=== PATIENT | female | born 2000 | race African-American/Black ===

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

== ENCOUNTER 2019-02-14 10:28 | Emergency (ER) | payer MEDICAID ==
[2019-02-14 12:22] LABS: APPEARANCE,URINE CLEAR; BILIRUBIN,URINE NEGATIVE (NEGATIVE); COLOR,URINE YELLOW; GLUCOSE, URINE NEGATIVE (NEGATIVE); KETONES,URINE 20 mg/dL (NEGATIVE); LEUKOCYTE ESTERASE,URINE NEGATIVE (NEGATIVE); NITRITE,URINE NEGATIVE (NEGATIVE); PROTEIN,URINE NEGATIVE (NEGATIVE); URINE SPECIFIC GRAVITY 1.016; UROBILINOGEN,URINE NEGATIVE mg/dL (<2.0)
[2019-02-14 12:27] LABS: RBCS (WET MOUNT) 4+ RBCS SEEN; T.VAGINALIS (WET MOUNT) NO TRICHOMONAS SEEN; WBCS (WET MOUNT) 1+ WBCS SEEN; YEAST (WET MOUNT) NO YEAST SEEN
--- NOTE | 2019-02-14 12:31 | ER Document Report ---
HPI - HPI Patient complains to provider of: vaginal irritation Time Seen by Provider: 02/14/19 11:28 Onset: Other Onset/Duration: Persistent Pain Level: 1 Context: 18-year-old female presents emergency department with complaints of vaginal itching with yellow discharge. She reports couple weeks ago she went to the health department was treated for chlamydia and a bacterial infection. She r eports she took all the antibiotics. She reports that now she is having some pain with void it calle occasionally and urinary frequency. Denies fever vomiting diarrhea. Is currently on her menses. Associated Symptoms: None Exacerbated by: Other - voiding Relieved by: Denies Similar symptoms previously: Yes Recently seen / treated by doctor: Yes - REPRODUCTIVE LMP: 01/14/19 Reproductive: DENIES: : Past Medical History - General Information source: Patient Last Menstrual Period: Current - Social History Smoking Status: Never Smoker Chew tobacco use (# tins/day): No Frequency of alcohol use: None Drug Abuse: Marijuana Family History: Reviewed & Not Pertinent Patient has suicidal ideation: No Patient has homicidal ideation: No - Past Medical History Cardiac Medical History: Denies: Hx Coronary Artery Disease, Hx Heart Attack, Hx Hypertension Pulmonary Medical History: Reports: Hx Asthma Denies: Hx Bronchitis, Hx COPD, Hx Pneumonia Neurological Medical History: Denies: Hx Cerebrovascular Accident, Hx Seizures Renal/ Medical History: Reports: Other - Chlamydia. Denies: Hx Peritoneal Dialysis Musculoskeletal Medical History: Denies Hx Arthritis Surgical Hx: Negative - Immunizations Immunizations up to date: Yes Hx Diphtheria, Pertussis, Tetanus Vaccination: Yes Vertical Provider Document - CONSTITUTIONAL Agree With Documented VS: Yes Exam Limitations: No Limitations General Appearance: WD/WN, No Apparent Distress - INFECTION CONTROL TRAVEL OUTSIDE OF THE [place] IN LAST 30 DAYS: No - HEENT HEENT: Atraumatic, Normocephalic. negative: Conjuctival Injection - NECK Neck: Normal Inspection, Supple. negative: Lymphadenopathy-Left, Lymphadeno gonzalo-Right - RESPIRATORY Respiratory: Breath Sounds Normal, No Respiratory Distress - CARDIOVASCULAR Cardiovascular: Regular Rate - GI/ABDOMEN Gastrointestinal: Abdomen Soft, Abdomen Non-Tender - REPRODUCTIVE Female Genitalia: Normal Inspection Last Menstrual Period: Current - BACK Back: Normal Inspection - MUSCULOSKELETAL/EXTREMETIES Musculoskeletal/Extremeties: MAEW, FROM, Non-Tender - NEURO Level of Consciousness: Awake, Alert, Appropriate Motor/Sensory: No Motor Deficit - DERM Integumentary: Warm, Dry, No Rash Course - Re-evaluation Re-evalutation: 02/14/19 12:19 This 18-year-old female with recent history of bacterial vaginosis and chlamydia presents to the emergency department complaining of vaginal itching and yellow discharge. Also complains of pain with void and urinary frequency. She reports she did take all medications but is unsure of what they were. Discussed STD urine culture sent. Patient reports she would rather be treated then wait to 3 hours or come back for treatment. Patient was instructed I will wait for the UA and wet mount results before we treat her. She verbalized understanding to all instructions Dictation of this chart was performed using voice recognition software; therefore, there may be some unintended grammatical errors. 02/14/19 12:56 UA is unremarkable wet mount negative for trichomoniasis negative for BV. Patient will be treated prophylactically with Rocephin and Zithromax per her request for possible STD. She was instructed to follow-up with the health department for recheck within the next week. Urine Color YELLOW 02/14/19 11:56 Urine Appearance CLEAR 02/14/19 11:56 Urine pH 7.0 (5.0-9.0) 02/14/19 11:56 Ur Specific [place] 1.016 02/14/19 11:56 Urine Protein NEGATIVE mg/dL (NEGATIVE) 02/14/19 11:56 Urine Glucose (UA) NEGATIVE mg/dL (NEGATIVE) 02/14/19 11:56 Urine Ketones 20 mg/dL (NEGATIVE) H 02/14/19 11:56 Urine Blood NEGATIVE (NEGATIVE) 02/14/19 11:56 Urine Nitrite NEGATIVE (NEGATIVE) 02/14/19 11:56 Ur Leukocyte Esterase NEGATIVE (NEGATIVE) 02/14/19 11:56 Urine WBC (Auto) 0 /HPF 02/14/19 11:56 Urine RBC (Auto) 0 /HPF 02/14/19 11:56 02/14/19 20:04 STD cultures negative Dictation of this chart was performed using voice recognition software; therefore, there may be some unintended grammatical errors. - Vital Signs Vital signs: Temp Pulse Resp BP Pulse Ox 98.4 F 71 20 128/78 H 100 02/14/19 10:33 02/14/19 10:33 02/14/19 10:33 02/14/19 10:33 02/14/19 10:33 Procedures - Pelvic Exam Pelvic exam Time completed: 12:18 Cultures obtained: No - Urine cultures sent Wet prep obtained: Yes Herpes culture obtained: No POC sent to lab: No Foreign body removed: No Bimanual exam performed: Yes Witnessed by: Eugenia FRAZIER's Discharge - Discharge Clinical Impression: Dysuria, Vaginal irritation, Possible exposure to STD Condition: Stable Disposition: HOME, SELF-CARE Instructions: Azithromycin ([facility]), Chlamydia ([facility]), Gonorrhea ([facility]), [facility] [place], Rocephin ([facility]) Additional Instructions: *You have been evaluated for vaginal irritation,discharge, urinary frequency and pain with void *Your wet mount was negative for bacterial infection. Your urine was negative for a urinary tract infection *You have been treated with Rocephin and Zithromax for gonorrhea and chlamydia per your request. You may call the culture nurse at [phone] Tuesday through Tuesday 8-4 for your results. *Follow up with your STRATEGY CONSULTANT or the health department for recheck within one week *Avoid sexual intercourse until follow up *Return to ED for worsening condition, changes, needs Forms: Elevated Blood Pressure Referrals: DENIZ CABRALES MD [Primary Care Provider] - Follow up as needed
[2019-02-14] MEDS ORDERED: CEFTRIAXONE INJ 250 MG VIAL IM ONE (12:53)
[2019-02-14] MEDS ORDERED: LIDOCAINE 1% INJ-PF (10 MG/ML) 30 ML SDV INJ ONE (12:54)
[2019-02-14] MEDS ORDERED: AZITHROMYCIN 250 MG TABLET PO ONE (12:54)
[2019-02-14] MEDS ORDERED: CEFTRIAXONE INJ 500 MG VIAL ONE (13:03)
[2019-02-14] MEDS ORDERED: AZITHROMYCIN 250 MG TABLET ONE (13:04)
[2019-02-14] MEDS ORDERED: LIDOCAINE 1% INJ-PF (10 MG/ML) 30 ML SDV ONE (13:04)
[2019-02-14 13:42] VITALS: BP 114/78
[2019-02-14 13:48] LABS: CHLAM PCR NOT DETECTED (NOT DETECT)
== END 2019-02-14 13:41 | disposition home or self-care (01) ==
LOC: ER 10:28
DX: L29.2 Pruritus vulvae (principal); R30.0 Dysuria; Z20.2 Contact with and (suspected) exposure to infections with a predominantly sexual mode of transmission
CPT/HCPCS: 99283; 96374; 96375; 87210; 81025; 81001; 87491; 87591; Q0144; J3490; J0696

== ENCOUNTER 2019-08-24 21:18 | Emergency (ER) | payer MEDICAID ==
--- NOTE | 2019-08-24 21:34 | ER Document Report ---
ED Medical Screen (RME) - General Chief Complaint: Vaginal Discharge Stated Complaint: VAGINAL DISCHARGE/VAGINAL PAIN Primary Care Provider: DENIZ CABRALES MD [Primary Care Provider] - Follow up as needed Notes: Patient is a 19-year-old -[place] female with a history of chlamydia last year who was seen here and treated. States she told her partner at that time to get treated. She is unsure if he got treated or not. She decided to h ave intercourse with him again recently and feels that she has chlamydia again. She states "I know the symptoms". She states she has had some vaginal irritation, foul smelling discharge that is on colored. Denies history of PID. States also while she is here she like some medicine for allergies because she has difficulty breathing through her nose at night. I have treated and performed a rapid initial assessment of this patient. A comprehensive ED assessment and evaluation of the patient, analysis of test results and completion of medical decision making process will be conducted by additional ED providers. PHYSICAL EXAMINATION: GENERAL: Well-appearing, well-nourished and in no acute distress. A&Ox4. Answers questions appropriately. TRAVEL OUTSIDE OF THE [place] IN LAST 30 DAYS: No - Related Data Allergies/Adverse Reactions: No Known Allergies Allergy (Verified 02/14/19 10:36) Past Medical History - Past Medical History Cardiac Medical History: Denies: Hx Coronary Artery Disease, Hx Heart Attack, Hx Hypertension Pulmonary Medical History: Reports: Hx Asthma Denies: Hx Bronchitis, Hx COPD, Hx Pneumonia Neurological Medical History: Denies: Hx Cerebrovascular Accident, Hx Seizures Renal/ Medical History: Denies: Hx Peritoneal Dialysis Musculoskeltal Medical History: Denies Hx Arthritis - Immunizations Immunizations up to date: Yes Hx Diphtheria, Pertussis, Tetanus Vaccination: Yes Doctor's Discharge - Discharge Referrals: DENIZ CABRALES MD [Primary Care Provider] - Follow up as needed
[2019-08-24 21:37] VITALS: BP 134/75
[2019-08-24 22:17] LABS: APPEARANCE,URINE CLOUDY; BILIRUBIN,URINE NEGATIVE (NEGATIVE); COLOR,URINE YELLOW; GLUCOSE, URINE NEGATIVE (NEGATIVE); KETONES,URINE NEGATIVE (NEGATIVE); PROTEIN,URINE NEGATIVE (NEGATIVE); URINE SPECIFIC GRAVITY 1.025
[2019-08-24 23:44] LABS: CHLAM PCR NOT DETECTED (NOT DETECT)
== END 2019-08-24 23:07 | disposition left against medical advice (07) ==
LOC: ER 21:18
DX: Z53.21 Procedure and treatment not carried out due to patient leaving prior to being seen by health care provider (principal); N89.8 Other specified noninflammatory disorders of vagina; R10.2 Pelvic and perineal pain
CPT/HCPCS: 81001; 81025; 87491; 87591; 99283

== ENCOUNTER 2019-08-25 02:15 | Emergency (ER) | payer MEDICAID ==
[2019-08-25] MEDS ORDERED: PREDNISONE 20 MG TABLET PO ONE (03:40)
--- NOTE | 2019-08-25 03:59 | ER Document Report ---
Entered by JORGE L SALGADO SCRIBE 08/25/19 0242 Acting as scribe for:ESPERANZA RODRIGUEZ IV, MD ED General - General Chief Complaint: STD Exposure Stated Complaint: STD CHECK Time Seen by Provider: 08/25/19 02:40 Primary Care Provider: DENIZ CABRALES MD [Primary Care Provider] - Follow up as needed ANALILIA REGALADO MD [HONORARY] - 08/27/19 (Call 08/27/2019 to arrange a follow-up appointment to be seen within 10 days for a recheck of your lipase and liver function enzyme levels.) Mode of Arrival: Ambulatory Information source: Patient Notes: This 19 year old female patient with a history of chlamydia presents to the ED today with complaints of possible STD exposure. Patient reports vaginal itching and foul-smelling vaginal discharge, but denies vaginal pain. She states that she switched feminine products recently, from Summer's Radha to "Clement V" because the former product was making her itch. She notes that her liquid Clement V was out of stock at the store, so she switched to the bar soap version, and the itching worsened. She was seen here last night for similar symptoms, but eloped. She denies epigastric pain, nausea, vomiting, fever, or excessive ETOH use. TRAVEL OUTSIDE OF THE [place] IN LAST 30 DAYS: No - Related Data Allergies/Adverse Reactions: No Known Allergies Allergy (Verified 02/14/19 10:36) Past Medical History - General Information source: Patient, [facility] Records - Social History Smoking Status: Current Every Day Smoker Cigarette use (# per day): Yes Chew tobacco use (# tins/day): No Smoking Education Provided: No Drug Abuse: Marijuana Family History: Reviewed & Not Pertinent Patient has suicidal ideation: No Patient has homicidal ideation: No Pulmonary Medical History: Reports: Hx Asthma - Immunizations Immunizations up to date: Yes Hx Diphtheria, Pertussis, Tetanus Vaccination: Yes Review of Systems - Review of Systems Constitutional: See HPI. denies: Fever EENT: No symptoms reported Cardiovascular: No symptoms reported Respiratory: No symptoms reported Gastrointestinal: See HPI. denies: Abdominal pain, Nausea, Vomiting Genitourinary: No symptoms reported Female Genitourinary: See HPI, Vaginal discharge, Vaginal odor, Other - Vaginal itching. Denies vaginal pain Musculoskeletal: No symptoms reported Skin: No symptoms reported Hematologic/Lymphatic: No symptoms reported Neurological/Psychological: No symptoms reported -: Yes All other systems reviewed and negative Physical Exam - Vital signs Vitals: Temp Pulse Resp BP Pulse Ox 98.0 F 71 12 119/81 99 08/25/19 02:20 08/25/19 02:20 08/25/19 02:20 08/25/19 02:20 08/25/19 02:20 Interpretation: Normal - General General appearance: Alert, Other - Distracted with technology In distress: None - HEENT Head: Normocephalic, Atraumatic Eyes: Normal Pupils: PERRL - Respiratory Respiratory status: No respiratory distress Chest status: Nontender Breath sounds: Normal Chest palpation: Normal - Cardiovascular Rhythm: Regular Heart sounds: Normal auscultation Murmur: No Friction rub: No Gallop: None auscultated - Abdominal Inspection: Normal Distension: No distension Bowel sounds: Normal Tenderness: Nontender - Abdomen soft Organomegaly: No organomegaly - Genitourinary External exam: Normal, Other - No erythema. No rash. No blisters. No vaginal discharge appreciated. - Back Back: Normal, Nontender - Extremities General upper extremity: Normal inspection General lower extremity: Normal inspection - Neurological Neuro grossly intact: Yes Sensory: Normal - Psychological Associated symptoms: Normal affect, Normal mood - Skin Skin Temperature: Warm Skin Moisture: Dry Skin Color: Normal Course - Re-evaluation Re-evalutation: 08/25/19 03:43 Results from patient's earlier ED visit discussed with patient. Elevated lipase and elevated LFTs were also discussed with the patient. Patient denies epigastric or other abdominal pain, nausea, vomiting, fever, excessive alcohol use. All questions were answered prior to discharge. Emergency signs and symptoms, reasons to return to the emergency department discussed with patient. Patient was instructed to follow-up with the primary care provider provided to her for a recheck of her lipase and LFTs in 10 days. - Vital Signs Vital signs: Temp Pulse Resp BP Pulse Ox 98.0 F 71 12 119/81 99 08/25/19 02:20 08/25/19 02:20 08/25/19 02:20 08/25/19 02:20 08/25/19 02:20 Discharge - Discharge Clinical Impression: Contact dermatitis Qualifiers: Contact dermatitis type: unspecified Contact dermatitis trigger: other chemical product Qualified Code(s): L25.3 - Unspecified contact dermatitis due to other chemical products Condition: Good Disposition: HOME, SELF-CARE Additional Instructions: Return to the Emergency Department without delay if any worse. You have been diagnosed with a contact dermatitis related to 1 of the personal hygiene products you used. Discontinue use of this product. You have also been informed that your lipase and liver function test levels were elevated. Given that you have no other symptoms suggestive of liver or pancreas problems, no further evaluation of these findings was deemed medical necessity at this point. Be certain to follow-up with the primary care provider listed for a repeat check of your LFTs and lipase in 10 days. HOME CARE INSTRUCTIONS & INFORMATION: Thank you for choosing us for your medical needs. We hope you're satisfied with the care you received. After you leave, you must properly care for your problem and, at the same time, observe its progress. Any condition can change. Some illnesses can change rapidly over hours or days. If your condition worsens, return to the Emergency Department or see your physician promptly. ABOUT YOUR X-RAYS AND EKG'S: If you had an EKG or X-rays taken, they have been read by the Emergency Physician. The X-rays and EKG's will also be read by a Radiologist or Railroad Passenger Agent within 24 hours. If discrepancies are noted, you will be notified by telephone. Please be certain the ED has a correct telephone number & address where you can be reached. Also, realize that some fractures or abnormalities do not show up on initial X-rays. If your symptoms continue, see your physician. ABOUT YOUR LABORATORY TEST: If you had laboratory tests, the results have been reviewed by the Emergency Physician. Some test results (for example cultures) may not be available for several days. You will be contacted if any test result shows you need additional treatment. Please be certain the ED has a correct telephone number and address where you can be reached. ABOUT YOUR MEDICATIONS: You will receive instructions on how to take your medicine on the prescription label you receive. Additional information may be provided by the Pharmacy. If you have questions afterwards, call the ED for clarification or further instructions. Some prescribed medications may cause drowsiness. Do not perform tasks such as driving a car or operating machinery without consulting your Pharmacist. If you feel you need a refill of pain medication, your condition will need re-evaluation. Please do not call for a refill of any medication. ABOUT YOUR SIGNATURE: Signature of this document acknowledges to followin. Understanding that you received emergency treatment and that you may be released before al medical problems are known or treated. Please be certain the ED has a correct phone number & address where you can be reached. 2. Acknowledgement that you will arrange for follow-up care as recommended. 3. Authorization for the Emergency Physician to provide information to your follow-up Physician in order to maximize your care. AT ANY TIME, IF YOUR SYMPTOMS CHANGE SIGNIFICANTLY OR WORSEN OR YOU DEVELOP NEW SYMPTOMS, RETURN TO THE EMERGENCY DEPARTMENT IMMEDIATELY FOR RE-EVALUATION. OUR GOAL IS TO PROVIDE EXCELLENT MEDICAL CARE! WE HOPE THAT WE HAVE MET YOUR EXPECTATIONS DURING YOUR EMERGENCY DEPARTMENT VISIT AND THAT YOU FEEL YOU HAVE RECEIVED EXCELLENT CARE! Referrals: DENIZ CABRALES MD [Primary Care Provider] - Follow up as needed ANALILIA REGALADO MD [HONORARY] - 08/27/19 (Call 08/27/2019 to arrange a follow-up appointment to be seen within 10 days for a recheck of your lipase and liver function enzyme levels.) I personally performed the services described in the documentation, reviewed and edited the documentation which was dictated to the scribe in my presence, and it accurately records my words and actions.
[2019-08-25 04:07] VITALS: BP 111/74
== END 2019-08-25 04:07 | disposition home or self-care (01) ==
LOC: ER 02:15
DX: L25.3 Unspecified contact dermatitis due to other chemical products (principal); N89.8 Other specified noninflammatory disorders of vagina; F17.210 Nicotine dependence, cigarettes, uncomplicated; Z20.2 Contact with and (suspected) exposure to infections with a predominantly sexual mode of transmission
CPT/HCPCS: 99283; J7512

== ENCOUNTER 2020-03-06 11:34 | Emergency (ER) | payer MEDICAID ==
[2020-03-06 11:44] VITALS: BP 134/73
[2020-03-06] MEDS ORDERED: NORMAL SALINE 1000 ML 1,000 ML IV ONE (11:55)
[2020-03-06] MEDS ORDERED: DIPHENHYDRAMINE HCL 50 MG/ML VIAL IV ONE (11:56)
[2020-03-06] MEDS ORDERED: METOCLOPRAMIDE HCL INJ/PF 10 MG/2 ML SDV IV ONE (11:56)
--- NOTE | 2020-03-06 11:57 | ER Document Report ---
ED Medical Screen (RME) - General Chief Complaint: Headache Stated Complaint: HEADACHE Time Seen by Provider: 03/06/20 11:50 Primary Care Provider: DENIZ CABRALES MD [Primary Care Provider] - Follow up as needed TRAVEL OUTSIDE OF THE [place] IN LAST 30 DAYS: No - HPI Notes: 03/06/20 11:56 19-year-old female to the emergency department with complaints of left-sided frontal headache that is been ongoing for 2 days. She states she is been taking Tylenol has not been relieving her pain at all. She states she had to call out of work because of this. She admits to some photo sensitivity. Denies any nausea or vomiting. She states she initially thought it was may be coming from her teeth she saw the dentist this morning and they told her that her teeth were fine. They thought maybe perhaps she had some sinus problems. She denies any nasal congestion or sore throat. She denies any cough. She denies any ear pain. On brief medical screening exam she does not have tenderness to palpation where she says her headache is in the frontal head. She has point tenderness to her left maxilla but she states she did not know that that was painful. She has no nuchal rigidity. She does not know if she is or not. She states she supposed to get her period tomorrow. She is sexually active and does not use protection. I performed a brief medical screening exam on the patient determined that the patient needs further evaluation and management by main side provider. I have placed initial orders to help expedite care. - Related Data Allergies/Adverse Reactions: No Known Allergies Allergy (Verified 03/06/20 11:50) Past Medical History - Social History Chew tobacco use (# tins/day): No Frequency of alcohol use: Occasional Drug Abuse: Marijuana - Past Medical History Cardiac Medical History: Denies: Hx Coronary Artery Disease, Hx Heart Attack, Hx Hypertension Pulmonary Medical History: Reports: Hx Asthma Denies: Hx Bronchitis, Hx COPD, Hx Pneumonia Neurological Medical History: Denies: Hx Cerebrovascular Accident, Hx Seizures Renal/ Medical History: Denies: Hx Peritoneal Dialysis Musculoskeltal Medical History: Denies Hx Arthritis - Immunizations Immunizations up to date: Yes Hx Diphtheria, Pertussis, Tetanus Vaccination: Yes Physical Exam - Vital signs Vitals: Temp Pulse Resp BP Pulse Ox 99.5 F 89 16 134/73 H 98 03/06/20 11:44 03/06/20 11:44 03/06/20 11:44 03/06/20 11:44 03/06/20 11:44 Course - Vital Signs Vital signs: Temp Pulse Resp BP Pulse Ox 99.5 F 89 16 134/73 H 98 03/06/20 11:50 03/06/20 11:44 03/06/20 11:44 03/06/20 11:44 03/06/20 11:44 Doctor's Discharge - Discharge Referrals: DENIZ CABRALES MD [Primary Care Provider] - Follow up as needed
[2020-03-06] MEDS ORDERED: METOCLOPRAMIDE HCL 10 MG TABLET PO ONE (12:47)
[2020-03-06] MEDS ORDERED: KETOROLAC TROMETHAMINE 60 MG/2 ML SDV IM ONE (12:47)
[2020-03-06] MEDS ORDERED: DIPHENHYDRAMINE HCL 25 MG CAPSULE PO ONE (12:47)
--- NOTE | 2020-03-06 12:49 | ER Document Report ---
ED General - General Chief Complaint: Headache Stated Complaint: HEADACHE Time Seen by Provider: 03/06/20 11:50 Primary Care Provider: DENIZ CABRALES MD [Primary Care Provider] - Follow up as needed Notes: 19 oh female presents asking "my ?" She was originally seen for headache which she describes as left-sided in her left sinus forehead and mouth/jaw area, for about 3 days. Gradual onset. No posterior headache neck pain neck stiffness visual symptoms occluding photophobia. She has had headaches intermittently before. She missed her period and is curious if she is She denies neurologic deficits. She took Tylenol and it did not help. She also went to the dentist to see if she had a bad tooth but did not TRAVEL OUTSIDE OF THE [place] IN LAST 30 DAYS: No - Related Data Allergies/Adverse Reactions: No Known Allergies Allergy (Verified 03/06/20 11:50) Past Medical History - General Information source: Patient - Social History Smoking Status: Unknown if Ever Smoked Chew tobacco use (# tins/day): No Frequency of alcohol use: Occasional Drug Abuse: Marijuana Family History: Reviewed & Not Pertinent Patient has homicidal ideation: No - Past Medical History Cardiac Medical History: Denies: Hx Coronary Artery Disease, Hx Heart Attack, Hx Hypertension Pulmonary Medical History: Reports: Hx Asthma Denies: Hx Bronchitis, Hx COPD, Hx Pneumonia Neurological Medical History: Denies: Hx Cerebrovascular Accident, Hx Seizures Renal/ Medical History: Denies: Hx Peritoneal Dialysis Musculoskeletal Medical History: Denies Hx Arthritis - Immunizations Immunizations up to date: Yes Hx Diphtheria, Pertussis, Tetanus Vaccination: Yes Review of Systems - Review of Systems Notes: REVIEW OF SYSTEMS GEN: Denies fever, chills, weight loss ENT: Denies sore throat, nasal discharge, ear pain EYES: Denies blurry vision, eye pain, discharge CV: Denies chest pain, palpitations, edema RESP: Denies cough, shortness of breath, wheezing GI: Denies abdominal pain, nausea, vomiting, diarrhea MSK: Denies joint pain/swelling, edema, SKIN: Denies rash, skin lesions LYMPH: Denies swollen glands/lymph nodes NEURO: Headache, denies, focal weakness or numbness, dizziness PSYCH: Denies depression, suicidal or homicidal ideation PHYSICAL EXAMINATION General: No acute distress, well-nourished Head: Atraumatic, normocephalic ENT: Left maxillary sinus tenderness nt Eyes: Conjunctiva normal, pupils equal, lids normal Neck: No JVD, supple, no guarding CVS: Normal rate, regular rhythm, no murmurs Resp: No resp distress, equal and normal breath sounds bilaterally GI: Nondistended, soft, no tenderness to palpation, no rebound or guarding Ext: No deformities, no edema, normal range of motion in upper and lower ext Back: No CVA or midline TTP Skin: No rash, warm Lymphatic: No lymphadeopathy noted Neuro: Awake, alert. Face symmetric. GCS 15. Good rn recovery, bilaterally has normal sensation and strength in all 4 extremities. Face is symmetric tongue is midline speech is fluent. Physical Exam - Vital signs Vitals: Temp Pulse Resp BP Pulse Ox 99.5 F 89 16 134/73 H 98 03/06/20 11:44 03/06/20 11:44 03/06/20 11:44 03/06/20 11:44 03/06/20 11:44 Course - Re-evaluation Re-evalutation: 03/06/20 12:48 Tension versus sinus headache with sinus tenderness no fever nasal discharge requiring antibiotics for sinusitis No indication for the need for imaging secondary to mass or bleed based on exam and story Not We will give oral medication for headache and discharged home to follow-up with primary care I have discussed with the patient there likely diagnosis, aftercare plan, follow-up plans and my usual and customary return precautions. They verbalized understanding of this. - Vital Signs Vital signs: Temp Pulse Resp BP Pulse Ox 99.5 F 89 16 134/73 H 98 03/06/20 11:50 03/06/20 11:44 03/06/20 11:44 03/06/20 11:44 03/06/20 11:44 Discharge - Discharge Clinical Impression: Headache, unspecified Qualifiers: Headache type: unspecified Headache chronicity pattern: acute headache Intractability: not intractable Qualified Code(s): R51.9 - Headache, unspecified Condition: Good Disposition: HOME, SELF-CARE Instructions: Headache ([facility]) Referrals: DENIZ CABRALES MD [Primary Care Provider] - Follow up as needed
== END 2020-03-06 13:04 | disposition home or self-care (01) ==
LOC: ER 11:34
DX: R51.9 Headache, unspecified (principal); Z32.02 Encounter for pregnancy test, result negative
CPT/HCPCS: 99284; 96372; 81025; J3490 ×2; J1885